=== PATIENT | female | born 1955 | race Hispanic/Latino ===

== ENCOUNTER 2021-02-04 06:57 | Day surgery (SDC) | payer OTHER ==
--- NOTE | 2021-01-30 10:04 | RAD REPORT ---
EXAM DESCRIPTION: RAD - Chest Pa And Lat (2 Views) - 01/30/2021 9:47 am CLINICAL HISTORY: Pre-op cath procedure COMPARISON: None TECHNIQUE: Frontal and lateral views of the chest were obtained. FINDINGS: The lungs are clear of failure, infiltrate or mass. Mild fibrotic lung pattern seen. Hea rt size is normal and central vasculature is within normal limits. No pleural effusion or pneumothor ax seen. No acute bony finding noted. No acute aortic finding. Several small surgical clips are pre sent in the mediastinum in proximity to the aorta. IMPRESSION: Scattered fibrotic change with no acute cardiopulmonary finding.
[2021-01-30 10:29] LABS: Absolute Lymphocytes (CBC) 1.5 K/uL (0.7-4.9); Basophils % 0.5 % (0-1.3); Hematocrit 39.1 % (36.0-45.0); Lymphocytes % 20.2 % (15.3-44.8); MPV 7.2 fL (7.6-11.3); RBC Red Blood Cell Count 4.44 M/uL (3.86-4.86)
[2021-01-30 10:38] LABS: Protime INR 1.03
[2021-01-30 10:54] LABS: Potassium 4.1 mmol/L (3.5-5.1)
[2021-02-04] MEDS ORDERED: NA CHLORIDE 0.9% 500 ML ONE ×2 (07:40→08:10)
[2021-02-04] MEDS ORDERED: FENTANYL CITR 100 MCG/2 ML ONE (08:09)
[2021-02-04] MEDS ORDERED: MIDAZOLAM HCL 2 MG/2 ML INJ ONE ×2 (08:09→08:47)
[2021-02-04] MEDS ORDERED: HEPA 1000U/500MLS 1,000 UNIT/500 ML BAG IV ONE (08:10)
[2021-02-04] MEDS ORDERED: ATROPINE SULF 1 MG/10 ML SYR IV ONE (08:10)
[2021-02-04] MEDS ORDERED: NITROGLYCERIN 100 MCG/ML SYR (for cath lab use only) IV ONE (08:15)
[2021-02-04] MEDS ORDERED: NA CHLORIDE 0.9% 0 ML ONE (08:15)
[2021-02-04] MEDS ORDERED: NITROGLYCERIN/D5W 0 MG/0 ML BTL IV ONE (08:15)
[2021-02-04 10:09] VITALS: TEMP 98.5
--- NOTE | 2021-02-04 10:17 | OP ---
Date of Procedure: 02/04/2021 Surgeon: Sven Rodriguez MD [facility] Coordinator: Chey Lane. The patient will be in the hospital for 2 hours of bedrest after the procedure. She will go home aft er that and I will see her in the office in 2 weeks. No change in medical therapy for now. Admitted on 02/04/2021 for left heart catheterization and selective coronary arteriogram. Indications: Positive stress test, history of hypertension, congestive heart failure and dyslipidemi a. 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 Given Versed and fentanyl for sedation. A 6-[place] sheath introduced in the right common femoral artery balbuena ccessfully. Angiography there was normal. [employer] was used to close the case. Kiki catheter l eft and right were used to do the catheterization. She had normal coronary. She was left dominant, very large circumflex, small RCA, normal left main and LAD. There were no complications. Blood loss was 5 cc. Total conscious sedation was 30 minutes. Postoperative Diagnosis: Positive stress test. Normal coronaries. Plan: Plan is for medical therapy. DESIREE/LUCIANO Voice ID: [id number] Report ID: [id number]
[2021-02-04 11:09] VITALS: BP 124/66; O2SAT 97
== END 2021-02-04 11:20 | disposition home or self-care (01) ==
LOC: CCL 06:57
DX: R94.39 Abnormal result of other cardiovascular function study (principal); I11.0 Hypertensive heart disease with heart failure; I50.22 Chronic systolic (congestive) heart failure; I71.2 Thoracic aortic aneurysm, without rupture; E78.2 Mixed hyperlipidemia; R42 Dizziness and giddiness; E11.9 Type 2 diabetes mellitus without complications; K21.9 Gastro-esophageal reflux disease without esophagitis; Z88.6 Allergy status to analgesic agent; Z20.822 Contact with and (suspected) exposure to COVID-19
CPT/HCPCS: 85025; 80048; 36415; 85610; 82947; 85730; 71046; 93454; U0002; C1893; J2250 ×2; J3010; J7040 ×2; J1644; J0583